=== PATIENT | male | born 1990 | race Caucasian/White ===

== ENCOUNTER → 2018-11-24 | Outpatient (CLI) | payer OTHER ==
--- NOTE | 2018-11-26 09:35 | REP ---
MRI LEFT SHOULDER: TECHNIQUE: Axial T2 fat sat, gradient echo, sagittal oblique T2 fat sat, coronal oblique T1, T2 fat sat. Supraspinatus tendon demonstrates some minimal ill-defined increased signal on T2-weighted images compatible with some minimal tendinopathy. No rotator cuff tendon tear is seen. There is some very mild fluid and subchondral marrow edema at the acromioclavicular joint without significant hypertrophic change. The acromion is type I. The biceps tendon is within the bicipital groove without significant tenosynovitis. There is no Hill-Sachs deformity. Deltoid muscle demonstrates no abnormal signal. Biceps labral complex is intact. There is no evidence of a labral tear. No paralabral cyst is seen. There is a normal amount of joint fluid. There is a small amount of fluid in the subacromial subdeltoid bursae. There is no occult fracture. IMPRESSION: Minimal supraspinatus tendinopathy. Very mild fluid and subchondral marrow edema at the acromioclavicular joint with a type I acromion. Mild fluid in the subacromial subdeltoid bursae could indicate bursitis. No evidence of a labral tear. Electronically Signed by Varun Pedraza MD 11/26/2018 05:37 P
== END ==
LOC: M RAD 11:20
PROVIDERS: ATTEND Family Medicine
DX: M25.512 Pain in left shoulder (principal)